=== PATIENT | female | born 1960 | race Caucasian/White ===

== ENCOUNTER 2022-03-29 05:36 | Day surgery (SDC) | payer BC ==
[2022-03-28 12:36] LABS: BASOPHILS % (AUTO) 0.4 % (0.0-5.0); EOSINOPHILS % (AUTO) 1.8 % (0.0-8.0); HEMATOCRIT 33.5 % (36-48); LYMPHOCYTES % (AUTO) 19.8 % (21.0-51.0); MEAN CORPUSCULAR HEMOGLOBIN 25.1 pg (27.0-33.0); MEAN CORPUSCULAR HGB CONC 31.3 g/dL (32.0-36.0); MEAN CORPUSCULAR VOLUME 80.1 fL (79-99); NEUTROPHILS % (AUTO) 70.6 % (40.0-77.0); PLATELET COUNT (AUTO) 160 K/uL (130-400); RED BLOOD CELL COUNT(AUTO) 4.18 MIL/uL (4.00-5.50); WHITE BLOOD COUNT (AUTO) 6.8 K/uL (4.8-10.8)
[2022-03-28 12:49] LABS: INR 0.95 (0.85-1.15); PROTHROMBIN TIME 10.4 SEC (9.6-11.6)
[2022-03-28 13:45] VITALS: BP 151/66
[~2022-03-29] VITALS: Ht 167.6 cm; Wt 153.3 kg
[2022-03-29] VITALS (18 sets, daily range): BP systolic 132–182; BP diastolic 56–86
[~2022-03-29 05:36] MED LIST: FERR-82 PO; FEXO1TAB5 PO
[2022-03-29] MEDS ORDERED: 0.9%NACL 1000ML 1,000 ML IV ONE (05:57)
[2022-03-29 06:31] LABS: CREATININE 1.2 mg/dL (0.5-1.5); POTASSIUM 4.2 mmol/L (3.5-5.1)
[2022-03-29 06:55] LABS: APPEARANCE,URINE CLOUDY (CLEAR); BILIRUBIN,URINE NEGATIVE (NEGATIVE); COLOR,URINE RED (YELLOW); GLUCOSE, URINE (UA) NEGATIVE (NEGATIVE); KETONES,URINE 15 mg/dL (NEGATIVE); LEUKOCYTE ESTERASE ,URINE MODERATE Leu/uL (NEGATIVE); NITRATE,URINE POSITIVE (NEGATIVE); OCCULT BLOOD,URINE LARGE (NEGATIVE); PH,URINE 6.5 (5.0-8.0); PROTEIN,URINE >=300 mg/dL (NEGATIVE)
[2022-03-29 07:49] LABS: BACTERIA,URINE Few /HPF (None Seen); RBC,URINE TNTC /HPF (0-1)
[2022-03-29] MEDS ORDERED: ONDANSETRON 4MG INJ ONE ×2 (07:53→10:22)
[2022-03-29] MEDS ORDERED: GLYCOPYRROLATE 1 MG/5 ML SYRINGE ONE (07:53)
[2022-03-29] MEDS ORDERED: DEXAMETHASONE SOD PHOSPHATE 10MG/ML 1ML VIAL ONE (07:53)
[2022-03-29] MEDS ORDERED: LIDOCAINE PF 100MG/5ML (2%) SYRINGE 5ML ONE (07:53)
[2022-03-29] MEDS ORDERED: SUCCINYLCHOLINE CHLORIDE 20 MG/ML 10 ML VIAL ONE (07:53)
[2022-03-29] MEDS ORDERED: NEOSTIGMINE 5MG/5ML SYR IV ONE (07:54)
[2022-03-29] MEDS ORDERED: PROPOFOL 10 MG/ML 20ML VIAL IV ONE (07:54)
[2022-03-29] MEDS ORDERED: ROCURONIUM 10MG/1ML SYR 10 MG/ML ML ONE (07:54)
[2022-03-29] MEDS ORDERED: FENTANYL CITRATE PF 50 MCG/1 ML 2ML VIAL ONE (07:54)
[2022-03-29] MEDS ORDERED: MIDAZOLAM HCL 1 MG/ML 5ML VIAL ONE (07:57)
[2022-03-29] MEDS ORDERED: LACTATED RINGERS 1000ML 1,000 ML IV SCH (08:00)
[2022-03-29] MEDS ORDERED: MEPERIDINE-PF 25 MG/ML SYG ONE (10:22)
[2022-03-29] MEDS ORDERED: HYDRALAZINE 20MG/ML VIAL ONE (10:44)
== END 2022-03-29 12:20 | disposition home or self-care (01) ==
LOC: DAH 05:36
PROVIDERS: ATTEND Obstetrics & Gynecology
DX: N95.0 Postmenopausal bleeding (principal); Z79.899 Other long term (current) drug therapy; E66.9 Obesity, unspecified; K21.9 Gastro-esophageal reflux disease without esophagitis; D64.9 Anemia, unspecified; Z98.890 Other specified postprocedural states; Z68.35 Body mass index [BMI] 35.0-35.9, adult
CPT/HCPCS: 85025; 85610; 85730; 86850; 86900; 86901; 87426; 58120; 80048; 87088 ×2; 82948 ×2; 81001; 36415 ×2; A4663; J3010; J3490; J1100; J2710; J0330; J7030; J2001; J0360; J2250; J2704; J2405 ×2; J2175; A4315; A4215; A4223; A4222; A4221